=== PATIENT | female | born 1960 | race Caucasian/White ===

== ENCOUNTER 2024-10-18 11:47 | Outpatient (CLI) | payer BC | END 2024-10-18 11:48 | disposition home or self-care (01) | LOC: NAV RAD 11:47 | PROVIDERS: ATTEND Physician Assistant Medical | DX: S16.1XXA Strain of muscle, fascia and tendon at neck level, initial encounter (principal); S23.9XXA Sprain of unspecified parts of thorax, initial encounter; W19.XXXA Unspecified fall, initial encounter; M47.814 Spondylosis without myelopathy or radiculopathy, thoracic region; M47.812 Spondylosis without myelopathy or radiculopathy, cervical region | CPT/HCPCS: 72050; 72072 ==